=== PATIENT | male | born 1995 | race Two or more races ===

== ENCOUNTER 2023-08-03 21:02 | Emergency (ER) | payer MEDICAID, OTHER ==
[~2023-08-03] VITALS: Ht 182.9 cm; Wt 99.8 kg
[2023-08-03 23:08] VITALS: BP 150/90; TEMP 98.3; O2SAT 100
== END 2023-08-03 23:10 | disposition left against medical advice (07) ==
LOC: ER 21:02
DX: M54.2 Cervicalgia (principal); V89.2XXA Person injured in unspecified motor-vehicle accident, traffic, initial encounter; Y93.89 Activity, other specified; Y92.89 Other specified places as the place of occurrence of the external cause; Y99.8 Other external cause status
CPT/HCPCS: 72125-TC